=== PATIENT | female | born 1945 | race Caucasian/White ===

== ENCOUNTER 2016-09-21 09:19 | Emergency (ER) | payer OTHER ==
[~2016-09-21] VITALS: Ht 162.6 cm; Wt 80.8 kg
[~2016-09-21 09:19] MED LIST: ELIQUIS5 MG PO
[2016-09-21 10:09] LABS: EOSINOPHIL (%) 4.4 % (0-5); EOSINOPHIL COUNT 0.3 K/uL (0-0.3); HEMATOCRIT 41.7 % (36.0-46.0); IMMATURE GRANULOCYTE (%) 0.3 % (0.0-0.7); INSTRUMENT ABS NEUTROPHIL CT 4.2 K/uL; LYMPHOCYTE COUNT 1.3 K/uL (1.0-2.8); MCH 29.6 PG (29.0-34.0); MCHC 33.3 G/DL (30.0-36.0); MCV 88.9 FL (83-99); MEAN PLAT.VOLUME 10.3 uM^3 (9.5-12.4); MONOCYTE (%) 8.2 % (3-12); MONOCYTE COUNT 0.5 K/uL (0-0.8); NEUTROPHIL (%) 66.2 % (45-76); NEUTROPHIL COUNT 4.2 K/uL (1.8-6.4); PLATELET COUNT 217 K/uL (156-360); RBC DIS.WIDTH-CV 13.2 % (11.8-14.6); RBC DIS.WIDTH-SD 42.9 % (39-53); RED BLOOD COUNT 4.69 M/uL (3.80-5.20); WHITE BLOOD COUNT 6.4 K/uL (4.1-10.2)
[2016-09-21 10:15] LABS: INTER. NORMALIZED RATIO 1.3; PROTHROMBIN TIME 14.8 SEC (10.2-12.9)
[2016-09-21 10:18] LABS: CHLORIDE 100 mEq/L (99-109); POTASSIUM 3.5 mEq/L (3.7-5.4); PTT 34.3 SEC (25-37); SODIUM 138 mEq/L (136-147)
[2016-09-21 10:19] LABS: GLUCOSE 137 mg/dL (70-99)
[2016-09-21 10:21] LABS: ANION GAP 11 MEQ/L (2-14)
[2016-09-21 10:23] LABS: GFR ESTIMATE (CALCULATED) > 59 mL/min/
[2016-09-21 10:24] LABS: UREA NITROGEN (BUN) 21 mg/dL (9-23)
[2016-09-21 10:30] LABS: TROP-I INTERPRETATION NEGATIVE; TROPONIN-I < 0.01 ng/mL (0.0-0.30)
[2016-09-21 12:58] LABS: TROP-I INTERPRETATION NEGATIVE; TROPONIN-I < 0.01 ng/mL (0.0-0.30)
[2016-09-21 13:42] VITALS: BP 118/69
== END 2016-09-21 13:44 | disposition home or self-care (01) ==
LOC: EME 09:19
PROVIDERS: Emergency Medicine
DX: R07.89 Other chest pain (principal); R11.0 Nausea; I45.10 Unspecified right bundle-branch block; I48.91 Unspecified atrial fibrillation; Z79.01 Long term (current) use of anticoagulants
CPT/HCPCS: 71010; 80048; 84484; 85025; 85610; 85730; 93005; 99281; 99285

== ENCOUNTER 2016-12-18 07:40 | Emergency (ER) | payer OTHER ==
[~2016-12-18] VITALS: Ht 165.1 cm; Wt 79.8 kg
[2016-12-18 08:36] LABS: EOSINOPHIL (%) 9.1 % (0-5); EOSINOPHIL COUNT 0.5 K/uL (0-0.3); HEMATOCRIT 38.5 % (36.0-46.0); IMMATURE GRANULOCYTE (%) 0.2 % (0.0-0.7); INSTRUMENT ABS NEUTROPHIL CT 2.6 K/uL; LYMPHOCYTE COUNT 1.4 K/uL (1.0-2.8); MCH 29.5 PG (29.0-34.0); MCV 89.5 FL (83-99); MEAN PLAT.VOLUME 10.2 uM^3 (9.5-12.4); MONOCYTE (%) 9.5 % (3-12); MONOCYTE COUNT 0.5 K/uL (0-0.8); NEUTROPHIL (%) 51.4 % (45-76); NEUTROPHIL COUNT 2.6 K/uL (1.8-6.4); PLATELET COUNT 244 K/uL (156-360); RBC DIS.WIDTH-CV 13.5 % (11.8-14.6)
[2016-12-18 08:55] LABS: CHLORIDE 101 mEq/L (99-109); POTASSIUM 3.7 mEq/L (3.7-5.4); SODIUM 138 mEq/L (136-147)
[2016-12-18 08:57] LABS: GLUCOSE 140 mg/dL (70-99); TROP-I INTERPRETATION NEGATIVE; TROPONIN-I < 0.01 ng/mL (0.0-0.30)
[2016-12-18 08:58] LABS: ANION GAP 8 MEQ/L (2-14)
[2016-12-18 08:59] LABS: TOTAL BILIRUBIN 0.6 mg/dL (0.0-1.0)
[2016-12-18 09:01] LABS: ALKALINE PHOSPHATASE 107 IU/L (3-129); GFR ESTIMATE (CALCULATED) 58 mL/min/
[2016-12-18 09:02] LABS: UREA NITROGEN (BUN) 19 mg/dL (9-23)
[2016-12-18 09:04] LABS: LIPASE 14 U/L (1.0-51.0)
[2016-12-18 11:25] LABS: TROP-I INTERPRETATION NEGATIVE; TROPONIN-I < 0.01 ng/mL (0.0-0.30)
[2016-12-18 11:57] VITALS: BP 150/72
== END 2016-12-18 11:57 | disposition home or self-care (01) ==
LOC: EME 07:40
PROVIDERS: Emergency Medicine
DX: R10.13 Epigastric pain (principal); E78.5 Hyperlipidemia, unspecified; I10 Essential (primary) hypertension; I48.91 Unspecified atrial fibrillation; J45.909 Unspecified asthma, uncomplicated
CPT/HCPCS: 71010; 76705; 80053; 83690; 84484; 85025; 93005; 99281; 99284

== ENCOUNTER 2017-06-05 10:45 | Day surgery (SDC) | payer OTHER ==
[~2017-06-05] VITALS: Ht 160 cm; Wt 81.2 kg
[~2017-06-05 10:45] MED LIST changes: +ATORVASTATIN CA40 MG PO; +COZAAR100 MG PO; +HYDROCHLOROTHIA25 MG PO; +MIRALAX119 GM PO; +OMEPRAZOLE20 MG PO; +VENTOLIN HFA18 GM IH; +WOMEN'S DAILY1 EAC2 PO
[2017-06-05 11:42] VITALS: BP 155/81
[2017-06-05] MEDS ORDERED: PERCOCET 2.51 TABLET PO (13:54)
[2017-06-05] MEDS ORDERED: PERCOCET 5/31 TABLET PO (13:56)
[2017-06-05 14:40] VITALS: BP 179/87
[2017-06-05 15:27] VITALS: BP 158/84
== END 2017-06-05 15:45 | disposition home or self-care (01) ==
LOC: SDC 10:45
DX: K64.2 Third degree hemorrhoids (principal); K64.4 Residual hemorrhoidal skin tags; K59.09 Other constipation; I10 Essential (primary) hypertension; K21.9 Gastro-esophageal reflux disease without esophagitis; E78.00 Pure hypercholesterolemia, unspecified; I48.0 Paroxysmal atrial fibrillation; J45.909 Unspecified asthma, uncomplicated; E66.9 Obesity, unspecified; Z68.30 Body mass index [BMI] 30.0-30.9, adult; Z79.01 Long term (current) use of anticoagulants; Z90.710 Acquired absence of both cervix and uterus; Z90.79 Acquired absence of other genital organ(s); Z90.722 Acquired absence of ovaries, bilateral; Z84.1 Family history of disorders of kidney and ureter; Z83.49 Family history of other endocrine, nutritional and metabolic diseases; Z83.3 Family history of diabetes mellitus; Z82.49 Family history of ischemic heart disease and other diseases of the circulatory system
CPT/HCPCS: 88304; J0131; J1100; J1170; J2250; J2405; S0020; S0074